=== PATIENT | female | born 1955 | race Caucasian/White ===

== ENCOUNTER 2016-09-24 21:53 | Emergency (ER) | payer OTHER ==
[~2016-09-24] VITALS: Ht 157.5 cm; Wt 72.5 kg
[2016-09-24] MEDS ORDERED: METF500T4 PO (22:08)
[2016-09-24 22:18] LABS: GLUCOSE,POINT OF CARE 228 MG/DL (70-110)
[2016-09-24] MEDS: KETOROLAC TROMETHAMINE 30 MG/ML VIAL IM ONE (23:29)
[2016-09-24 23:30] VITALS: BP 139/89
== END 2016-09-24 23:43 | disposition home or self-care (01) ==
LOC: EMS 21:58
DX: S46.911A Strain of unspecified muscle, fascia and tendon at shoulder and upper arm level, right arm, initial encounter (principal); X50.9XXA Other and unspecified overexertion or strenuous movements or postures, initial encounter; Y93.89 Activity, other specified; Y92.9 Unspecified place or not applicable; Y99.9 Unspecified external cause status
CPT/HCPCS: 73030; 82962; 96372; 99284; J1885